=== PATIENT | male | born 1955 | race Caucasian/White ===

== ENCOUNTER 2016-07-12 07:05 | Emergency (ER) | payer MEDICAID ==
[~2016-07-12] VITALS: Ht 167.6 cm; Wt 74.4 kg
[~2016-07-12 07:05] MED LIST: CITA-36 PO; INDO50CA82 PO; LEVO100T8 PO; LORA1TAB12 PO; METH750T3 PO
[2016-07-12] MEDS ORDERED: PROMETHAZINE HCL 25 MG/ML 1ML IV ONE (07:45)
[2016-07-12] MEDS ORDERED: SODIUM CHLORIDE 0.9% 1,000 ML IV ONE (07:45)
[2016-07-12 08:25] LABS: Basophils # (auto) 0.1 uL; Basophils % (auto) 0.9 % (0.0-2.0); Eosinophils # (auto) 0.2 uL; Eosinophils % (auto) 1.2 % (0.0-7.0); Hematocrit 42.5 % (41.0-53.0); Lymphocytes # (auto) 2.1 uL; Mean Corpuscular Hemoglobin 30.2 pg (28.0-32.0); Mean Corpuscular Volume 91.4 fL (80.0-100.0); Mean Platelet Volume 6.3 fL (7.4-10.4); Monocytes # (auto) 0.7 uL; Monocytes % (auto) 5.6 % (0.0-12.0); Neutrophils # (auto) 10.1 uL; Neutrophils % (auto) 76.3 % (37.0-80.0); Platelet Count (auto) 492 10^3/uL (140-450); Red Cell Distribution Width 15.4 % (11.6-16.0); White Blood Cell 13.3 10^3/uL (4.4-10.8)
[2016-07-12 08:46] LABS: Albumin 2.8 g/dL (3.4-5.0); BUN/Creatinine Ratio 15.7; Calcium 8.5 mg/dL (8.5-10.1); Potassium 3.9 mmol/L (3.5-5.1)
[2016-07-12 08:55] LABS: Bilirubin, Total 0.4 mg/dL (0.2-1.0); Total Protein 7.5 g/dL (6.4-8.2)
[2016-07-12 09:51] VITALS: BP 128/76
[2016-07-12] MEDS ORDERED: HYDROcodone-ACET 5/325MG TAB PO ONE (10:30)
== END 2016-07-12 13:31 | disposition home or self-care (01) ==
LOC: ER 07:05
DX: M79.1 Myalgia (principal); J40 Bronchitis, not specified as acute or chronic; F17.210 Nicotine dependence, cigarettes, uncomplicated
CPT/HCPCS: 36415; 71010; 80053; 84484; 85025; 85049; 93005

== ENCOUNTER 2016-11-18 07:43 | Emergency (ER) | payer MEDICAID ==
[~2016-11-18] VITALS: Ht 152.4 cm; Wt 45.4 kg
[2016-11-18] MEDS ORDERED: NOREPINEPHRINE BITARTRATE 2 ML IV ONE (07:46)
[2016-11-18] MEDS ORDERED: SODIUM BICARBONATE 8.4% INJ 50ML SYRINGE ONE (07:55)
[2016-11-18] MEDS ORDERED: IOHEXOL 350 MG/ML 100ML IJ ONE (07:58)
[2016-11-18] MEDS ORDERED: HEPARIN IN NS 1000Units/500mL 0 ML ONE (07:59)
[2016-11-18] MEDS ORDERED: LIDOCAINE 2%HCL (LOCAL ANESTH.) INJ 20ML MDV ONE (07:59)
[2016-11-18 09:14] LABS: Allen Test No; Base Excess -16.3 mmol/L (-2.0-2.0); Blood COHb 0.6 % (0.5-1.5); HCO3 15.2 mmol/L (22-26.0); HHb 80.8 % (0.0-5.0); MODE AMBU BAG; O2Hb 16.6 % (94.0-97.0); PCO2 64.5 mmHg (35.0-45.0); PCO2(T) 64.5 mmHg (35.0-45.0); PO2 < 35.0 mmHg (80.0-100.0); Sample Type Arterial; pH 6.989 (7.350-7.450)
[2016-11-18] MEDS ORDERED: EPINEPHrine HCL 1 MG/10 ML SYRG IV ONE (11:38)
[2016-11-18] MEDS ORDERED: SODIUM BICARBONATE 8.4% INJ 50ML SYRINGE IV ONE (11:38)
== END 2016-11-18 11:40 | disposition expired ==
LOC: EDUNIT# 07:43 → ER 07:43 → CATH 07:44 → ER 11:40
DX: I46.9 Cardiac arrest, cause unspecified (principal); Z85.118 Personal history of other malignant neoplasm of bronchus and lung; F17.210 Nicotine dependence, cigarettes, uncomplicated
CPT/HCPCS: 36600; 51702; 82805; 92950; 93005; 99285; J0171; J7050